=== PATIENT | male | born 1955 | race Caucasian/White ===

== ENCOUNTER 2017-02-03 23:05 | Emergency (ER) | payer MEDICARE, MEDICAID ==
[~2017-02-03] VITALS: Ht 175.3 cm; Wt 84.8 kg
--- NOTE | 2017-02-03 23:25 | NUR ---
TO BED 10 A 61 YO MALE PATIENT [facility] FROM [facility] OUT OF BED -KO C/O RT EYEBROW, CHEEK, LIPS LACERATIONS. VSS. NAD NOTED. NONDIAPHORETIC. COMFORT MEASURES RENDERED. INITIAL WOUND CARE DONE.
[2017-02-04] MEDS ORDERED: ACETAMINOPHEN ES 500 MG TABLET ONE (00:08)
[2017-02-04] MEDS: LIDOCAINE 2% 20 ML MDV TP ONE (00:28)
[2017-02-04] MEDS ORDERED: LIDOCAINE HCL/MPF 1% 30 ML VIAL IJ ONE (00:46)
--- NOTE | 2017-02-04 01:10 | NUR ---
Donald Burns at bedside to suture lacerations.
--- NOTE | 2017-02-04 01:31 | NUR ---
CALLED [facility] FOR TRANSPORTATION GOING BACK TO [facility], ETA [id number]
--- NOTE | 2017-02-04 02:50 | NUR ---
Patient discharged to halfway in stable condition. Written and verbal after care instructions given. Endorsed care to [facility] staff. Wound dressings clean and intact. nad noted on dc. vss.
[2017-02-04 03:05] VITALS: BP 110/64
== END 2017-02-04 03:07 ==
LOC: ER 23:28
DX: S01.111A Laceration without foreign body of right eyelid and periocular area, initial encounter (principal); S01.411A Laceration without foreign body of right cheek and temporomandibular area, initial encounter; S01.511A Laceration without foreign body of lip, initial encounter; S16.1XXA Strain of muscle, fascia and tendon at neck level, initial encounter; M19.90 Unspecified osteoarthritis, unspecified site; I10 Essential (primary) hypertension; E11.9 Type 2 diabetes mellitus without complications; F20.9 Schizophrenia, unspecified; F32.9 Major depressive disorder, single episode, unspecified; F41.9 Anxiety disorder, unspecified; Z91.02 Food additives allergy status; Z91.09 Other allergy status, other than to drugs and biological substances; W06.XXXA Fall from bed, initial encounter; Y93.89 Activity, other specified; Y92.122 Bedroom in nursing home as the place of occurrence of the external cause; Y99.8 Other external cause status
CPT/HCPCS: 12015; 70450; 72125; 99284; A4606; A6402; J3490; Z7610